=== PATIENT | female | born 1985 | race Caucasian/White ===

== ENCOUNTER 2021-11-14 12:17 | Emergency (ER) | payer BC, MEDICAID, SELFPAY ==
[2021-11-14 12:25] VITALS: BP 160/89; PULSE 75; RESP 16; TEMP 36.9; O2SAT 100
--- NOTE | 2021-11-14 12:25 | ED.SKABFB ---
HPI - Skin/Abscess/Foreign Bdy General Chief complaint: Skin/Abscess/Foreign Body Stated complaint: Rash Time Seen by Provider: 11/14/21 12:25 Source: patient and RN notes reviewed History of Present Illness HPI narrative: Patient is a 36-year-old female who presents the urgent care with complaints of an itchy red rash under the right armpit. Patient states she has had it for the last 5 days and she has been using her old Hibiclens and nystatin cream. Patient states she has had increased sweating. Patient states she uses Rm due to history of abscesses with shaving. Patient has not used the Rm in the last few days. No other acute complaints. No acute distress noted. Patient aware of the plan of care. Some parts of this dictation were generated by voice recognition software and may contain typographical and/or grammatical inaccuracies. Related Data Allergies Allergy/AdvReac Type Severity Reaction Status Date / Time Penicillins Allergy Unknown Unknown Verified 11/14/21 12:43 codeine AdvReac Mild Nausea Verified 11/14/21 12:43 hydrocodone AdvReac Mild Nausea Verified 11/14/21 12:44 Review of Systems Review of Systems: CONSTITUTIONAL: Denies fever, chills, or sweats. EYES: Denies visual changes, redness, or discharge. ENT: Denies rhinorrhea, congestion, sore throat, or otalgia. CARDIOVASCULAR: Denies chest pain, palpitations, or edema. RESPIRATORY: Denies cough or dyspnea. GASTROINTESTINAL: Denies abdominal pain, nausea, vomiting, or diarrhea. GENITOURINARY: Denies dysuria or hematuria. SKIN: Reports of itchy red rash under the right armpit MUSCULOSKELETAL: Denies back pain, joint pain, or myalgia. NEUROLOGIC: Denies headache, numbness, or weakness. All other systems reviewed are negative, except as documented in HPI. PMFSH Comments At the time of my signature, I reviewed and agree with the nursing past medical, surgical, social, and family history. There is no relevant family history pertinent to the patient complaint. Exam Narrative: GENERAL: This is a well-nourished, well-developed patient, in no apparent distress. HEAD: normocephalic, atraumatic. EYES: PERRL. Sclera clear/white. Vision is grossly intact. EARS: External ears normal NOSE: External nose normal with no obvious nasal discharge, nares without redness, no rhinorrhea. THROAT: Mucous membranes moist NECK: Neck supple CARDIOVASCULAR: Regular rate and rhythm without murmurs, gallops, or rubs. RESPIRATORY: Clear to auscultation. Breath sounds equal bilaterally. No wheezes, rales, or rhonchi. SKIN: 7 x 3 area of slightly raised erythemic dry yeast dermatitis to the right axilla NEURO: awake, alert, and oriented to person, place and time. There were no obvious focal neurologic abnormalities. EXTREMITIES: No clubbing, cyanosis, or edema. Course Course Level of Care: Express Care Visit Vital Signs Vital signs: Vital Signs Temperature 98.5 F 11/14/21 12:25 Pulse Rate 75 11/14/21 12:25 Respiratory Rate 16 11/14/21 12:25 Blood Pressure 160/89 H 11/14/21 12:25 Pulse Oximetry 100 11/14/21 12:25 Temperature 98.5 F 11/14/21 12:25 Pulse Rate 75 11/14/21 12:25 Respiratory Rate 16 11/14/21 12:25 Blood Pressure 160/89 H 11/14/21 12:25 Pulse Oximetry 100 11/14/21 12:25 Reviewed-patient is informed that they may have pre-hypertension or hypertension based on a blood pressure reading in the department. I recommend the patient call the primary care provider listed on their discharge instructions or a physician of their choice this week to arrange follow-up for further evaluation of possible pre-hypertension or hypertension. MDM - Skin/Abscess/Foreign Bdy MDM Narrative Medical decision making narrative: Advised the patient to use the nystatin powder under the arm as directed. Keep the area very dry. Do not shave or wax under the arm until it is completely resolved. If you do not have any resolution with the nystatin powder, start the flucon
== END 2021-11-14 12:55 | disposition home or self-care (01) ==
PROVIDERS: Emergency Provider Nurse Practitioner Family; PCP Internal Medicine
DX: B36.9 Superficial mycosis, unspecified (principal); I10 Essential (primary) hypertension; E03.9 Hypothyroidism, unspecified
CPT/HCPCS: 99213; G0463